=== PATIENT | male | born 1980 | race African-American/Black ===

== ENCOUNTER 2021-06-12 07:46 | Emergency (ER) | payer MEDICAID, OTHER ==
[~2021-06-12] VITALS: Ht 157.5 cm; Wt 85.0 kg
[2021-06-12] MEDS ORDERED: IBUP-2028 MT (09:04)
[2021-06-12] MEDS ORDERED: CIPHCO RIGHT EAR (09:04)
[2021-06-12] MEDS ORDERED: IBUPROFEN 400MG TABLET PO ONE (09:15)
[2021-06-12 09:33] VITALS: BP 144/99
== END 2021-06-12 09:35 | disposition home or self-care (01) ==
LOC: ER 07:46
DX: H60.501 Unspecified acute noninfective otitis externa, right ear (principal)
CPT/HCPCS: 99283

== ENCOUNTER 2021-12-22 09:45 | Emergency (ER) | payer BC, MEDICAID ==
[~2021-12-22] VITALS: Ht 177.8 cm; Wt 85.0 kg
[~2021-12-22 09:45] MED LIST: CIPHCO RIGHT EAR; IBUP-2028 MT
[2021-12-22 10:03] VITALS: BP 152/101
[2021-12-22] MEDS ORDERED: DIPHENHYDRAMINE 25MG CAPSULE PO SCH (11:15)
[2021-12-22] MEDS ORDERED: IBUPROFEN 600MG TABLET PO SCH (11:15)
[2021-12-22] MEDS ORDERED: METOCLOPRAMIDE HCL 10MG TABLET PO SCH (11:15)
[2021-12-22] MEDS ORDERED: METO-293 MT (12:45)
[2021-12-22] MEDS ORDERED: AMOX-494 MT (12:45)
[2021-12-22] MEDS ORDERED: ACET-2708 MT (12:45)
== END 2021-12-22 12:54 | disposition home or self-care (01) ==
LOC: ER 11:03
DX: G43.909 Migraine, unspecified, not intractable, without status migrainosus (principal); J32.0 Chronic maxillary sinusitis; J32.3 Chronic sphenoidal sinusitis; R03.0 Elevated blood-pressure reading, without diagnosis of hypertension
CPT/HCPCS: 99284; J8597; Q0163